=== PATIENT | female | born 1970 ===

== ENCOUNTER 2021-04-29 04:00 | Day surgery (SDC) | payer OTHER ==
[~2021-04-29 04:00] MED LIST: ADVAIR IH; ALBUTERO IH; AMITRIPTYLINE H10 MG PO; DOLOGESIC PO; LIPITOR PO; PREDNISONE PO; SINGULAIR10 MG PO; VENLAFAXINE PO
[2021-04-29] MEDS ORDERED: PERCOCET 5-3251 EACH PO (09:04)
== END 2021-04-29 12:35 | disposition home or self-care (01) ==
LOC: CIR.AMB 04:00
PROVIDERS: ATTEND Surgery
DX: D35.1 Benign neoplasm of parathyroid gland (principal); Z20.822 Contact with and (suspected) exposure to COVID-19